=== PATIENT | male | born 1985 | race Caucasian/White ===

== ENCOUNTER 2018-01-26 14:11 | Inpatient (IN) | payer BC, OTHER ==
[~2018-01-26] VITALS: Ht 167.6 cm; Wt 97.5 kg
[2018-01-26 16:38] LABS: *AMPHETAMINE, URINE NEGATIVE (NEGATIVE); *BARBITURATE, URINE NEGATIVE (NEGATIVE); *CANNABINOID, URINE NEGATIVE (NEGATIVE); *COCCAINE, URINE NEGATIVE (NEGATIVE); *OPIATE, URINE NEGATIVE (NEGATIVE); *PHENCYCLIDINE SCREEN,URINE NEGATIVE (NEGATIVE)
--- NOTE | 2018-01-26 17:00 | NUR ---
PREADMISSION Pt 32 y/o male received in intake. Pt states from home. Pt being admitted for etoh withdrawal. Pt alert and oriented to name, place, and time. Perrla. Skin warm and moist to touch. Lung sounds clear bilaterally. Respirations even and unlabored. Bilateral hand tremors noted. Perspiration on forehead noted. ju=523/84 t=98.0 p=105 r=16 o2=96%@ra. Explained unit rules to pt with acknowledgment.
--- NOTE | 2018-01-26 17:03 | NUR ---
ADMISSION Pt 32 y/o male received in intake. Pt states from home. Pt being admitted for etoh withdrawal. Pt alert and oriented to name, place, and time. Perrla. Skin warm and moist to touch. Lung sounds clear bilaterally. Respirations even and unlabored. Bilateral hand tremors noted. Perspiration on forehead noted. Not able to sit still during assessment. Pacing at times. Stated has pcp but does not remember her name. Oriented pt to unit and room. MD aware of admission with new orders for 4 day valium taper to begin 01/27/18. Initial ciwa=13. Appears disheveled. Shirt with dirt noted on it. Dirt under fingernails noted. Anxious and restless. Foot tapping noted. Pressured speech in responses during assessment. Pt states I feel, " chills", and continued to explain this is one of the withdrawal symptoms he experiences. Pt stated his typical withdrawal symptoms are , " I get sad, chills, sweats, and palpitations." Pt stated has experienced a blackout about 2 weeks ago( does not remember the exact day/ date), where he was drinking alcohol from [id number], drinking more than usual, and waking up the following morning, not remember how he ended up in that part of the house. Pt states longest period of sobriety is 10 days on 12/2017. Pt states that he has been drinking alcohol( vodka) more frequently since the girlfriend and the pt some time this year around April 2017. Pt stated he first started drinking alcohol on his 20 [birth year] birthday, but started drinking alcohol now because he feels lonely because his ex girlfriend took his dog, and went on to explain, that sometimes at work when it's not busy, there is no one to talk to at work. Pt stated, " on those days when it's slow at work, I have no one to talk to, and then when I get home, I don't have my dog. So I feel lonely." Pt denies any SI/SA and any history of SI/SA. Pt denies ever being on 5150. Pt states the reason he decided to get sober was, " I want to better myself". Pt states he has attempted sobriety several times and he has had difficulty stopping by himself and ends up drinking more than usual every time he attempts to stop drinking alcohol. States his cravings are strong said there have been multiple times when he wakes up in the morning and there's only empty bottles of vodka around the house. States he would grab the empty bottle of vodka, pour some water in it and drink it, to get all the alcohol from the bottle. States drinking alcohol has caused problems with his job , " calling out sick a lot of times". Also stated it has damaged his relationship with family and friends. States his internal motivator is, " to look good". Substance history Etoh ( vodka)po 1500 mL daily x 1 month. Last drink was about 188mL @1200 on 01/26/18. States his first drink was 12 years ago. This is his first time in detox. Medical history Asthma 2007 Treatment history 1st time in treatment. Pt states he was placed in a "drunk tank" and stayed over night until he was sober 3 weeks ago around January 03, 2018.
[2018-01-26] MEDS ORDERED: DIAZEPAM 10 MG TABLET PO PRN ×2 (18:00)
[2018-01-26] MEDS ORDERED: MAG HYDROX/AL HYDROX/SIMETH 30 ML LIQUID UDC PO PRN (18:00)
[2018-01-26] MEDS ORDERED: DICYCLOMINE HCL 20 MG TABLET PO PRN (18:00)
[2018-01-26] MEDS ORDERED: ONDANSETRON 4 MG/2 ML VIAL IM PRN (18:00)
[2018-01-26] MEDS ORDERED: IBUPROFEN 600 MG TABLET PO PRN (18:00)
[2018-01-26] MEDS ORDERED: THIAMINE HCL 200 MG/2 ML VIAL IM ONE (18:00)
[2018-01-26] MEDS ORDERED: MAGNESIUM HYDROXIDE 30 ML LIQUID UDC PO PRN (18:00)
[2018-01-26] MEDS ORDERED: ONDANSETRON ODT 4 MG TAB.RAPDIS SL PRN (18:00)
[2018-01-26] MEDS ORDERED: DIAZEPAM 5 MG TABLET PO PRN (18:00)
[2018-01-26] MEDS ORDERED: LORAZEPAM 2 MG/1 ML VIAL IM PRN (18:00)
[2018-01-26] MEDS ORDERED: LOPERAMIDE HCL 2 MG CAPSULE PO PRN ×2 (18:00)
[2018-01-26 18:23] LABS: BASOPHILS # (AUTO) 0.1 K/uL (0.0-8.0); BASOPHILS % (AUTO) 0.9 % (0.0-2.0); EOSINOPHILS # (AUTO) 0.1 K/uL (0.0-0.7); EOSINOPHILS % (AUTO) 2.1 % (0.0-7.0); HEMATOCRIT 47.8 % (36.7-47.1); LYMPHOCYTES % (AUTO) 29.3 % (20.5-51.5); MEAN CORPUSCULAR HGB CONC 36 g/dL (32.5-36.3); MEAN CORPUSCULAR VOLUME 90.2 fL (73.0-96.2); MONOCYTES # (AUTO) 0.3 K/uL (2.0-10.0); MONOCYTES % (AUTO) 4.2 % (0.0-11.0); NEUTROPHILS # (AUTO) 4.3 K/uL (1.8-8.9); NEUTROPHILS % (AUTO) 63.5 % (38.5-71.5); PLATELET COUNT (AUTO) 344 K/uL (152-348); WHITE BLOOD COUNT (AUTO) 6.8 K/uL (3.6-10.2)
[2018-01-26 18:43] LABS: BILIRUBIN,TOTAL 0.7 mg/dL (0.2-1.0); MAGNESIUM 1.8 mg/dL (1.8-2.4); POTASSIUM 3.2 mmol/L (3.5-5.1); TOTAL PROTEIN, SERUM 8.5 g/dL (6.4-8.2)
--- NOTE | 2018-01-26 18:49 | NUR ---
PRN VALIUM ciwa= 13. Valium po prn per MD order given and tolerated well. Perspiration on face and head noted. Bilateral hand tremors. Anxious and restless. pressured speech. Agitated.
--- NOTE | 2018-01-26 19:30 | NUR ---
Start of Shift Patient Received. Per endorsement, patient is currently receiving PRN Medications for increased signs and symptoms of withdrawal. Patient will start a 4 day Valium taper tomorrow 01/27/18 morning. He received PRN Valium 10mg. Last noted CIWA 13. Upon rounds patient is noted in bed, awake, alert and verbally responsive. Patient is noted to be restless and anxious. He is able to verbalize the medication that they gave me earlier kind helped to take the edge off a little. Im not as nervous. PRN Valium 10mg noted to be effective. All needs attended to promptly. Will continue plan of care as ordered.
--- NOTE | 2018-01-26 19:54 | NUR ---
END OF SHIFT Pt 32 y/o male received in intake. Pt states from home. Pt being admitted for etoh withdrawal. Pt alert and oriented to name, place, and time. Perrla. Skin warm and moist to touch. Lung sounds clear bilaterally. Respirations even and unlabored. Bilateral hand tremors noted. Perspiration on forehead noted. Last ciwa=13 @1800. Pt is on a 4 day valium taper to start 01/27/18. Bed on lowest position with side rails x2 up for safety. Call light within reach.
[2018-01-26 20:28] VITALS: BP 149/76
[2018-01-26] MEDS: diphenhydrAMINE 50 MG CAPSULE PO PRN (20:45)
--- NOTE | 2018-01-26 20:45 | NUR ---
PRN Medication Administration Patient is noted to verbalize increased anxiety, restlessness, agitation, tremulous. He verbalized "I dont have a headache now but I had a headache a little while ago, it felt like it was pounding." Patient is also noted to verbalize inability of falling asleep and staying asleep. CIWA 16. PRN Valium 20mg and Benadryl administered. Will continue to monitor.
--- NOTE | 2018-01-26 21:45 | NUR ---
PRN Medication Reassessment Patient is noted in bed with eyes closed. Breathing even and non labored. No signs of restlessness or discomfort noted. Patient received PRN Valium 20mg and Benadryl with medications noted to be effective. Will continue to monitor.
[2018-01-27 00:37] VITALS: BP 141/84
--- NOTE | 2018-01-27 00:38 | NUR ---
CIWA Assessment Patient is noted in bed with eyes closed. Breathing even and non labored. Vitals rendered, CIWA assessment not able to be completed as per order. Will continue to monitor.
[2018-01-27 04:15] VITALS: BP 138/81
--- NOTE | 2018-01-27 04:15 | NUR ---
CIWA Assessment Patient is noted in bed with eyes closed. Breathing even and non labored. Vitals rendered. patient is noted to remain asleep during vitals. CIWA assessment unable to be completed as per order. will continue to monitor.
--- NOTE | 2018-01-27 07:14 | NUR ---
End of Shift Patient is noted in bed with eyes closed. Breathing even and non labored. Patient will start a 4 day Valium taper today 0900. He received PRN Valium 20mg and Benadryl with medications noted to be effective. Last noted CIWA 16. Patient was noted to sleep a total of 9 hours. All needs attended to promptly. Will endorse to continue plan of care as ordered.
--- NOTE | 2018-01-27 07:30 | NUR ---
START OF SHIFT Pt 32 y/o male admitted for etoh withdrawal. Pt received in room on awake watching television. Pt alert and oriented to name, place, and time. Perrla. Skin warm and moist to touch. Respirations even and unlabored. Appears disheveled. Clothes and empty drink bottles scattered throughout the room. Encouraged to maintain hygiene. Anxious and restless. Not able to lay still. Pressured speech. Hyperverbal. Bilateral hand tremors. Complaints of intermittent perspiration. Complaints of intermittent nausea. It was reported that pt slept for 9 hours last night. Last ciwa=16 @ 1999. Pt is on a 4 day valium taper and is on day 1. Bed on lowest position with side rails x 2 up for safety. Call light within reach.
[2018-01-27 08:00] VITALS: BP 140/64
--- NOTE | 2018-01-27 08:00 | NUR ---
CIWA ASSESSMENT ciwa=14. Anxious and restless. Pressured speech. Bilateral hand tremors. Complaints of intermittent perspiration and nausea. Complaints of generalized discomfort.
[2018-01-27] MEDS: THIAMINE HCL 100 MG TABLET PO SCH (08:18)
[2018-01-27] MEDS: FOLIC ACID 1 MG TABLET PO SCH (08:18)
[2018-01-27] MEDS: MULTIVITAMINS,THERAPEUTIC TABLET PO SCH (08:18)
[2018-01-27] MEDS: DIAZEPAM 10 MG TABLET PO SCH ×3 (08:18→20:53)
--- NOTE | 2018-01-27 08:45 | NUR ---
LABS k+=3.2. aware with new orders for k dur 40 meq po x 1 dose , noted and carried out.
[2018-01-27] MEDS ORDERED: TUBERCULIN,PURIF.PROT.DERIV. 5 TU/0.1 ML TEST ID ONE (09:00)
[2018-01-27] MEDS ORDERED: 4 DAY TAPER VALIUM-SERENITY PROTOCOL PO PRN (09:00)
[2018-01-27] MEDS ORDERED: ALBU2.5V13 IH (09:27)
[2018-01-27] MEDS ORDERED: POTASSIUM CHLORIDE 20 MEQ TAB.PRT.SR PO ONE (09:30)
--- NOTE | 2018-01-27 10:18 | NUR ---
Therapist prompted client to attend group therapy.
[2018-01-27 12:00] VITALS: BP 125/80
--- NOTE | 2018-01-27 12:00 | NUR ---
CIWA ASSESSMENT ciwa=13. Bilateral hand tremors. Anxious and restless. Pacing. Pressured speech. Easily irritable. Complaints of intermittent perspirations and chills.
[2018-01-27] MEDS ORDERED: ALBUTEROL SULFATE 2.5 MG/ 0.5 ML NEBU IH PRN (14:30)
[2018-01-27 16:00] VITALS: BP 142/64
--- NOTE | 2018-01-27 16:00 | NUR ---
CIWA ASSESSMENT ciwa=13. Anxious and restless. Pressured speech noted. Bilateral hand tremors noted. Intermittent perspiration. Complaints of generalized discomfort.
[2018-01-27 18:18] LABS: POTASSIUM 3.6 mmol/L (3.5-5.1)
--- NOTE | 2018-01-27 18:42 | NUR ---
END OF SHIFT Pt 32 y/o male admitted for etoh withdrawal. Pt alert and oriented to name, place, and time. Perrla. Skin warm and moist touch. Respirations even and unlabored. Appears disheveled and unkempt. Hair uncombed. Empty drink bottles scattered throughout the room. Encouraged to maintain hygiene. Anxious and restless. Pressured speech noted. Bilateral hand tremors noted. Complaints of intermittent perspiration and nausea. Generalized discomfort. Attended group activity today. Medication compliant. Last ciwa= 13 @ 1600. Pt is on a 4 day valium taper and is on day 1. Bed on lowest position with side rails x 2 up for safety. Call light within reach.
--- NOTE | 2018-01-27 19:30 | NUR ---
Start of Shift Patient Received. Per endorsement, patient continues on a modified 4 day Valium taper. He was noted to be compliant with group and social activities. No PRN medications administered. Last noted CIWA 13. Patient is noted to with anxiety, restlessness, chills, and intermittent tremors. Patient is able to verbalize that medication is effective in minimizing signs and symptoms of withdrawal. All needs attended to promptly. Will continue plan of care as ordered.
[2018-01-27 20:52] VITALS: BP 143/88
[2018-01-27] MEDS: diphenhydrAMINE 50 MG CAPSULE PO PRN (20:53)
--- NOTE | 2018-01-27 21:00 | NUR ---
PRN Medication Administration Patient is noted to verbalize inability of falling asleep. PRN Benadryl administered with routine medications. Will continue to monitor.
--- NOTE | 2018-01-27 22:00 | NUR ---
PRN Medication Reassessment Patient is noted in bed awake and verbally responsive. Patient is noted to be watching tv and states "I'm slowly making my way to bed. The medication is helping." PRN Benadryl is noted to be effective. Will continue to monitor.
[2018-01-28 00:39] VITALS: BP 139/77
--- NOTE | 2018-01-28 00:41 | NUR ---
CIWA Assessment Patient is noted in bed with eyes closed. Breathing even and non labored. Vitals rendered. CIWA not able to be completed as per order. Will continue to monitor.
[2018-01-28 04:41] VITALS: BP 137/83
--- NOTE | 2018-01-28 04:42 | NUR ---
CIWA Assessment Patient is noted in bed with eyes closed. Breathing even and non labored. Vitals rendered. CIWA not able to be completed as per order. Patient is noted to easily fall back asleep with no signs or symptoms verbalized. Will continue to monitor.
--- NOTE | 2018-01-28 07:01 | NUR ---
End of Shift Patient is in bed with eyes closed. Breathing even and non labored. Patient continues on a modified 4 day Valium taper. He was noted with anxiety, restlessness, agitation, tremulous, chills and sweats. He was noted to be compliant with group and social activities. PRN Benadryl administered with medication noted to be effective. Last noted CIWA 9. Patient noted to sleep a total of 8 hours. Patient is able to verbalize that medication is effective in minimizing signs and symptoms of withdrawal. All needs attended to promptly. Will endorse to continue plan of care as ordered.
--- NOTE | 2018-01-28 07:30 | NUR ---
START OF SHIFT Pt 32 y/o male admitted for etoh withdrawal. Pt received in room on bed with eyes closed resting, but easily arousable to name. Pt alert and oriented to name, place, and time. Perrla. Skin warm and moist to touch. Respirations even and unlabored. Appears disheveled. Hair uncombed. Clothes scattered throughout the room. Encouraged to maintain hygiene. Anxious and restless. Pressured speech. Bilateral hand tremors noted. Intermittent perspirations and chills. Easily irritable. It was reported that pt slept for 8 hours last night. Last ciwa=9 @ 1999. Pt is on a 4 day valium taper and is on day 2. Bed on lowest position with side rails x2 up for safety. Call light within reach.
[2018-01-28 08:00] VITALS: BP 140/80
--- NOTE | 2018-01-28 08:00 | NUR ---
CIWA ASSESSMENT ciwa=13. Anxious and restless. Pressured speech. Fidgety. Irritable. Intermittent perspiration and chills. Complaints of generalized discomfort.
[2018-01-28] MEDS: FOLIC ACID 1 MG TABLET PO SCH (08:44)
[2018-01-28] MEDS: MULTIVITAMINS,THERAPEUTIC TABLET PO SCH (08:44)
[2018-01-28] MEDS: THIAMINE HCL 100 MG TABLET PO SCH (08:44)
[2018-01-28] MEDS: DIAZEPAM 5 MG TABLET PO SCH ×4 (09:00→20:12)
[2018-01-28 12:00] VITALS: BP 137/90
--- NOTE | 2018-01-28 12:00 | NUR ---
CIWA ASSESSMENT ciwa=13. Bilateral hand tremors noted. Anxious and restless. Pressured speech noted. Fidgety. Pacing. Intermittent perspiration and chills. Generalized discomfort.
[2018-01-28 13:06] LABS: HEPATITIS B SURFACE AG Negative (Negative)
[2018-01-28] MEDS ORDERED: LORATADINE 10 MG TABLET PO PRN (13:30)
[2018-01-28 16:00] VITALS: BP 147/71
--- NOTE | 2018-01-28 16:00 | NUR ---
CIWA ASSESSMENT ciwa=13. Anxious and restless. pressured speech noted. Irritable. Complaints of intermittent perspiration and chills. Bilateral hand tremors noted. Complaints of generalized discomfort.
--- NOTE | 2018-01-28 18:18 | NUR ---
END OF SHIFT Pt 32 y/o male admitted for etoh withdrawal. Pt alert and oriented to name, place, and time. Perrla. Skin warm and moist touch. Respirations even and unlabored. Appears disheveled and unkempt. Hair uncombed. Clothes and food wrappings scattered throughout the room. Encouraged to maintain hygiene. Anxious and restless. Pressured speech noted. Bilateral hand tremors noted. Complaints of intermittent perspiration. Generalized discomfort. Pacing. Attended group activity today. Medication compliant. Last ciwa= 13 @ 1600. Pt is on a 4 day valium taper and is on day 2. Bed on lowest position with side rails x 2 up for safety. Call light within reach.
--- NOTE | 2018-01-28 19:30 | NUR ---
Start of Shift Note Received a 32 y/o male px, admitted for medically supervised withdrawal from ETOH. Px was put on 4 day Valium taper started yesterday, 01/27/2018. He is tolerating it. Last reported CIWA 13 by AM shift nurse. During the rounds at 1930, herminio is awake inside his room just and just came from groups. Px appears calm. He is unshaven. Snacks and drinks noted on top of the bed side table. He states that his anxiety is pretty mild at 2/10. Mild bilateral hand tremors noted on extended arms. No more complaints made. Bed on lowest position, side rails up 2x and call light within reach. Well continue to monitor
[2018-01-28 20:00] VITALS: BP 139/90
--- NOTE | 2018-01-28 20:00 | NUR ---
CIWA 7 On assessment, px appears calm. He states that his anxiety is pretty mild at 2/10. Mild bilateral hand tremors noted on extended arms. No more complaints made. will continue to monitor
[2018-01-28] MEDS: diphenhydrAMINE 50 MG CAPSULE PO PRN (22:06)
--- NOTE | 2018-01-28 22:06 | NUR ---
PRN Benadryl Px received Benadryl 50 mg PO for insomnia. will continue to monitor
[2018-01-29] VITALS: BP 122/87
[2018-01-29 04:00] VITALS: BP 125/82
--- NOTE | 2018-01-29 04:00 | NUR ---
CIWA deferred CIWA deferred at 0000 and 0400 due to the px is asleep, to reassess if the px is awake per doctor's order. will continue to monitor
--- NOTE | 2018-01-29 07:05 | NUR ---
End of Shift Note During the shift at 2206, px received Benadryl 50 mg PO for insomnia. It was effective. Px slept for 8 hours. Oral intake of 1000 ml, voided 2x without BM. Last CIWA 7. Bed on lowest position, side rails up on the right side and call light within reach. Well continue to monitor. Px endorsed to AM shift nurse.
--- NOTE | 2018-01-29 07:47 | NUR ---
START OF SHIFT NOTE Received report from night nurse, 32 year old male admitted for ETOH withdrawal and continues with 4 days Valium taper tolerating well. Per endorsement patient was given PRN Benadryl effective per night nurse, slept for 8 hours, last CIWA score was -7. Received patient alert awake oriented 4, Educated patient regarding plan of the day and medications regimen and importance of attending groups and activities, patient verbalized understanding. Skin intact warm and dry to touch. All safety measures in place. Will continues with plan of care.
[2018-01-29 08:00] VITALS: BP 126/73
[2018-01-29 08:14] LABS: BILIRUBIN,DIRECT 0.2 mg/dL (0.0-0.2); BILIRUBIN,TOTAL 0.9 mg/dL (0.2-1.0); TOTAL PROTEIN, SERUM 6.8 g/dL (6.4-8.2)
[2018-01-29] MEDS: DIAZEPAM 5 MG TABLET PO SCH ×3 (08:24→20:38)
[2018-01-29] MEDS: MULTIVITAMINS,THERAPEUTIC TABLET PO SCH (08:24)
[2018-01-29] MEDS: THIAMINE HCL 100 MG TABLET PO SCH (08:24)
[2018-01-29] MEDS: FOLIC ACID 1 MG TABLET PO SCH (08:24)
--- NOTE | 2018-01-29 08:24 | NUR ---
CIWA ASSESSMENT CIWA score-10, patient reported anxiety, agitation, restless, sweats, bilateral hand tremors. Patient received his scheduled medications. Will cont to monitor.
[2018-01-29 12:00] VITALS: BP 138/88
--- NOTE | 2018-01-29 12:00 | NUR ---
CIWA ASSESSMENT CIWA score noted -11, patient reported increased in anxiety, agitation, restless, bilateral hand tremors noted. Will cont to monitor.
[2018-01-29 16:00] VITALS: BP 140/95
--- NOTE | 2018-01-29 19:07 | NUR ---
END OF SHIFT NOTE Gave report to night nurse, patient admitted for ETOH withdrawal and continues with Valium taper tolerating well. Patient presented with labile facial expression, anxiety, agitation, restlessness, sweats, bilateral hand tremors. Patient received his scheduled medications no PRN were requested by the patient. Patient attended groups activities and noted interacting with peers. Encourage PO fluids as tolerated. Last CIWA score was- 9. Vital signs WNL. Patient denies any SI/HI. All safety measures in place. Endorse care to night nurse.
--- NOTE | 2018-01-29 19:30 | NUR ---
Start of Shift Received 32 year old male admitted 01/26/18 to [facility] for medically supervised withdrawal from ETOH. Pt currently on day 3 of 4 day Valium taper which he is tolerating well. Last CIWA 9 @ 1600. No PRN medications given during day shift. Pt awake, alert, and oriented. Pt anxious, flat affect, restless, and easily distracted. Pt in room reading AA literature. Bed low, side rails up x 2, and call jacob in reach. Continue to monitor.
[2018-01-29 20:15] VITALS: BP 134/81
--- NOTE | 2018-01-30 00:10 | NUR ---
CIWA deferred/Vital refused Pt resting with eyes closed. Respirations even and unlabored. CIWA deferred and vitals refused. Will continue to monitor.
--- NOTE | 2018-01-30 04:06 | NUR ---
CIWA deferred/Vitals refused Pt resting with eyes closed. Respirations are even and unlabored. CIWA deferred and vitals refused.
--- NOTE | 2018-01-30 06:45 | NUR ---
End of Shift Endorsing 32 year old male admitted 01/26/18 to [facility] for medically supervised withdrawal from ETOH. Pt currently on day 4 of 4 day Valium taper which he is tolerating well. Last CIWA 6 @ 1999. No PRN medications given during this shift. PO intake 3402 ml, voided x 2, BM x 2, and slept 7 hours. Pt resting in bed with eyes closed. Respirations are even and unlabored. Bed low, side rails up x 2, and call jacob in reach.
--- NOTE | 2018-01-30 07:42 | NUR ---
START OF SHIFT NOTE Received report from night nurse, 32 year old male admitted for ETOH withdrawal and continues with 4 days Valium taper tolerating well. Per endorsement patient did not receive any PRN, slept for 7 hours, last CIWA score was -6. Received patient alert awake anxious, agitated, restless. Educated patient regarding plan of the day and medications regimen and importance of attending groups and activities, patient verbalized understanding. All safety measures in place. Will continues with plan of care.
[2018-01-30 07:56] LABS: BASOPHILS % (AUTO) 0.6 % (0.0-2.0); EOSINOPHILS # (AUTO) 0.4 K/uL (0.0-0.7); EOSINOPHILS % (AUTO) 9.5 % (0.0-7.0); LYMPHOCYTES # (AUTO) 1.2 K/uL (20.0-40.0); LYMPHOCYTES % (AUTO) 28.8 % (20.5-51.5); MEAN CORPUSCULAR HEMOGLOBIN 32.1 uug (23.8-33.4); MEAN CORPUSCULAR HGB CONC 36 g/dL (32.5-36.3); MEAN CORPUSCULAR VOLUME 89.8 fL (73.0-96.2); MONOCYTES # (AUTO) 0.2 K/uL (2.0-10.0); NEUTROPHILS # (AUTO) 2.3 K/uL (1.8-8.9); NEUTROPHILS % (AUTO) 56.1 % (38.5-71.5)
[2018-01-30 08:00] VITALS: BP 127/71
[2018-01-30] MEDS: MULTIVITAMINS,THERAPEUTIC TABLET PO SCH (08:07)
[2018-01-30] MEDS: THIAMINE HCL 100 MG TABLET PO SCH (08:07)
[2018-01-30] MEDS: DIAZEPAM 5 MG TABLET PO SCH ×2 (08:07→20:32)
[2018-01-30] MEDS: FOLIC ACID 1 MG TABLET PO SCH (08:07)
--- NOTE | 2018-01-30 08:07 | NUR ---
CIWA ASSESSMENT CIWA score-10, patient presented with sad facial expression, anhedonia, unkempt room, anxious, agitated, restless, sweats, bilateral hand tremors. Patient received his scheduled medications. Will cont to monitor.
[2018-01-30 08:13] LABS: BILIRUBIN,DIRECT 0.1 mg/dL (0.0-0.2); BILIRUBIN,TOTAL 0.7 mg/dL (0.2-1.0); TOTAL PROTEIN, SERUM 6.8 g/dL (6.4-8.2)
[2018-01-30 08:19] LABS: HEMOGLOBIN 16.1 g/dL (12.5-16.3); WHITE BLOOD COUNT (AUTO) 4.1 K/uL (3.6-10.2)
[2018-01-30 08:20] LABS: HEMATOCRIT 44.9 % (36.7-47.1); PLATELET COUNT (AUTO) 184 K/uL (152-348)
[2018-01-30 12:00] VITALS: BP 140/92
--- NOTE | 2018-01-30 12:00 | NUR ---
CIWA ASSESSMENT CIWA score-11, patient continues to presented with anxiety, agitation, restless, sweats, light headed, bilateral hand tremors. Will cont to monitor.
--- NOTE | 2018-01-30 14:28 | NUR ---
Therapist prompted client to attend all group therapy sessions.
[2018-01-30 16:00] VITALS: BP 148/83
--- NOTE | 2018-01-30 19:17 | NUR ---
END OF SHIFT NOTE Gave report to night nurse, 32 year old male admitted for ETOH withdrawal. Patient continues on Valium taper tolerating well. Patient presented with sad facial expression, diaphoresis, anhedonia, anxiety, agitation, restless, fatigue, light headed, sweats, bilateral hand tremors. Patient was given scheduled medications. Patient did not request for any PRN'S. Patient denies any SI/HI. Vital signs WNL. Patient noted attending groups and activities. Encourage PO fluids as tolerated. Last CIWA score was -10. All safety measures in place, call light within reach. Patient endorse to night nurse in stable condition.
--- NOTE | 2018-01-30 19:50 | NUR ---
START OF SHIFT NOTE Rcvd report from outgoing nurse. Pt is a 32 y/o male A/O to person, place, time, and purpose. Pt was admitted for medically supervised withdrawal from ETOH. Pt is on day 4 of a 4day Valium taper. Pt has been presenting w/ anxiety, restlessness, depressed mood, and sweats. Pt rcvd no PRN medications during previous shift. Last CIWA 10 @ 1600. Call light is within reach. Pt will continue to be monitored and needs met.
[2018-01-30 20:12] VITALS: BP 135/80
--- NOTE | 2018-01-30 20:15 | NUR ---
CIWA ASSESSMENT CIWA 10. Pt has been presenting w/ anxiety, restlessness, depressed mood, and sweats. V/S: T:98.4, P:78, RR:12, SPO2:99, BP:135/80.
[2018-01-30] MEDS ORDERED: CLONIDINE HCL 0.1 MG TABLET PO PRN (20:30)
--- NOTE | 2018-01-30 20:34 | NUR ---
PRN CLONIDINE ADMINISTRATION Clonidine 0.1mg given for elevated BP of 138/85. Pt denies all other s/s. Will reassess pt in 1 hr.
--- NOTE | 2018-01-30 21:34 | NUR ---
PRN CLONIDINE REASSESSMENT Pt is in bed w/ his eyes closed. Pt's respirations are unlabored and even. Will continue to monitor pt.
--- NOTE | 2018-01-31 00:03 | NUR ---
CIWA DEFERRED. V/S REFUSED Pt is in bed w/ his eyes closed. Pt's respirations are unlabored and even.
--- NOTE | 2018-01-31 04:05 | NUR ---
CIWA DEFERRED. V/S REFUSED Pt is in bed w/ his eyes closed. Pt's respirations are unlabored and even.
--- NOTE | 2018-01-31 07:11 | NUR ---
END OF SHIFT NOTE Endorsed pt to oncoming nurse. Pt is a 32 y/o male A/O to person, place, time, and purpose. Pt was admitted for medically supervised withdrawal from ETOH. Pt completed a 4day Valium taper. Pt continue presenting w/ anxiety, restlessness, depressed mood, and sweats. Pt denies any S/I or H/I. PRN Clonidine 0.1mg was given for elevated BP and was noted effective. Pts fluid intake was 900ml and he slept for 10hrs. Last CIWA 10 @ 1999. Call light is within reach.
--- NOTE | 2018-01-31 07:50 | NUR ---
START OF SHIFT NOTE Received report from night nurse, 32 year old male admitted for ETOH withdrawal and completed his 4 days Valium taper tolerated well. Per endorsement patient received PRN clonidine effective per night nurse, slept for 10 hours, last CIWA-. Received patient alert awake anxious, agitated. Encourage patient to use non pharmacological intervention such as reading books, listening to the music, patient is due for schedule medications. All safety measures in place. Will continues with plan of care.
[2018-01-31 08:00] VITALS: BP 119/68
--- NOTE | 2018-01-31 08:00 | NUR ---
CIWA ASSESSMENT CIWA score-8, patient presented flat facial expression, anhedonia, anxious, agitated, restless, sweats, bilateral hand tremors. Will cont to monitor.
[2018-01-31 08:05] LABS: BILIRUBIN,DIRECT 0.2 mg/dL (0.0-0.2); BILIRUBIN,TOTAL 0.6 mg/dL (0.2-1.0)
[2018-01-31] MEDS: FOLIC ACID 1 MG TABLET PO SCH (08:19)
[2018-01-31] MEDS: MULTIVITAMINS,THERAPEUTIC TABLET PO SCH (08:19)
[2018-01-31] MEDS: THIAMINE HCL 100 MG TABLET PO SCH (08:19)
[2018-01-31 12:00] VITALS: BP 131/82
--- NOTE | 2018-01-31 12:00 | NUR ---
CIWA ASSESSMENT CIWA score-8, patient reported feeling less anxious, agitated, restless, sweats decreased, bilateral hand tremors. Will cont to monitor.
[2018-01-31 16:00] VITALS: BP 140/88
--- NOTE | 2018-01-31 19:00 | NUR ---
END OF SHIFT NOTE Gave report to night nurse, 32 year old male patient admitted for ETOH withdrawal and completed his Valium taper tolerated. Patient presented with sad facial expression, anxiety, agitation, restless, sweats, bilateral hand tremors, headache. Patient was given schedule medications did not requested for any PRN'S. Last CIWA-6. Patient set for discharge in AM. patient denies any SI/HI. Vital signs WNL. Patient noted attending groups and activities. Encourage PO fluids as tolerated. All needs attended. All safety measures in place, call light within reach. Patient endorse to night nurse in stable condition.
--- NOTE | 2018-01-31 19:30 | NUR ---
START OF SHIFT Received 32 year old male admitted on 01/26/18 for ETOH withdrawal. Pt is alert and oriented x4. He is noted with anxiety and restlessness. Per endorsement, he did not receive or request PRN medications. He is scheduled to be DC tomorrow to Home. Last CIWA:6 at 1600. Breathing is even and unlabored, safety measures in place. Will continue to monitor.
[2018-01-31 20:00] VITALS: BP 149/86
--- NOTE | 2018-01-31 20:00 | NUR ---
CIWA Patient noted with anxiety, disheveled appearance, and restlessness. Current CIWA is 5. Will continue to monitor.
--- NOTE | 2018-02-01 00:52 | NUR ---
Vitals Refused/CIWA Deferred Patient refused 0000 vitals. Patient lying in bed with eyes closed RR even and unlabored. Noted to be sleeping.
--- NOTE | 2018-02-01 04:12 | NUR ---
VITALS REFUSED, CIWA DEFERRED 0400 vitals refused. CIWA deferred d/t pt lying in bed with eyes closed noted to be asleep. Breathing is even and unlabored, safety measures in place. Will continue to monitor.
--- NOTE | 2018-02-01 07:12 | NUR ---
END OF SHIFT Pt is a 32 year old male admitted on 01/26/18 for ETOH withdrawal. Pt remains alert and oriented x4. He was noted with anxiety and restlessness during the shift. Per endorsement, he did not receive or request PRN medications. He is scheduled to be DC today to Home. He slept a total of 6 hrs, Intake:3,500mL, Void: x5, BM:x1. Last CIWA:5 at 1999. Breathing is even and unlabored, safety measures in place. Endorsed to AM shift.
--- NOTE | 2018-02-01 07:54 | NUR ---
BEGINNING OF SHIFT Patient endorsement report received from shift engineer nurse, all pertinent information was discussed. Received patient awake, alert and oriented x4, educated regarding plan of care for the day, medication regimen, and will educated regarding all discharge instructions. Scheduled to be discharged today. Per shift engineer patient slept for 6 hours, completed 4 day Valium taper with last CIWA score of: 5. Safety measures are in place. call light with in reach, will continue to monitor.
[2018-02-01 07:58] LABS: BILIRUBIN,DIRECT 0.1 mg/dL (0.0-0.2); BILIRUBIN,TOTAL 0.5 mg/dL (0.2-1.0); TOTAL PROTEIN, SERUM 7.5 g/dL (6.4-8.2)
[2018-02-01] MEDS: FOLIC ACID 1 MG TABLET PO SCH (08:39)
[2018-02-01] MEDS: THIAMINE HCL 100 MG TABLET PO SCH (08:39)
[2018-02-01] MEDS: MULTIVITAMINS,THERAPEUTIC TABLET PO SCH (08:39)
[2018-02-01 08:42] VITALS: BP 132/76
--- NOTE | 2018-02-01 09:36 | NUR ---
DISCHARGE Patient discharged off the unit at 0936, prior to dishcarge patient was provided with education and teaching regarding all discharge instructions with good verbal understanding. Patient discharged home, noted self motivated towards sobriety. Patients vital signs WNL. last CIWA score of: 5. Patients discharge instructions were placed in personal duffel bag. No home medications were brought. Off the unit [id number].
== END 2018-02-01 09:36 | disposition home or self-care (01) | DRG 895 ==
LOC: SRC 15:34
PROVIDERS: ADMIT Family Medicine Addiction Medicine; ATTEND Family Medicine Addiction Medicine
PROC: HZ2ZZZZ Detoxification Services for Substance Abuse Treatment (ICD-10-PCS; principal; 2018-01-26)
PROC: HZ31ZZZ Individual Counseling for Substance Abuse Treatment, Behavioral (ICD-10-PCS; 2018-01-27)
PROC: HZ41ZZZ Group Counseling for Substance Abuse Treatment, Behavioral (ICD-10-PCS; 2018-01-27)
DX: F10.230 Alcohol dependence with withdrawal, uncomplicated (principal); Y90.6 Blood alcohol level of 120-199 mg/100 ml; E87.6 Hypokalemia; R74.0 Nonspecific elevation of levels of transaminase and lactic acid dehydrogenase [LDH]; Z79.51 Long term (current) use of inhaled steroids; Z81.1 Family history of alcohol abuse and dependence; J45.909 Unspecified asthma, uncomplicated; F41.9 Anxiety disorder, unspecified
CPT/HCPCS: 36415; 70030-TC; 80307; 83690; 83735; 85025; 86580; 86592; 86705; 86803; 87340; 87806; G0480; J3411; Q0163